=== PATIENT | female | born 1995 | race Two or more races ===

== ENCOUNTER 2023-03-22 17:04 | Emergency (ER) | payer BC, SELFPAY ==
[2023-03-22 17:13] VITALS: BP 134/91; PULSE 74; RESP 18; TEMP 36.8; O2SAT 100; BMI 36.1
--- NOTE | 2023-03-22 17:13 | ED_ITS ---
HPI - General Adult General Chief complaint: Abdominal Pain Stated complaint: Vomitting, abdominal pain Time Seen by Provider: 03/22/23 21:44 Source: patient, RN notes reviewed and old records reviewed Mode of arrival: ambulatory Limitations: no limitations History of Present Illness HPI narrative: 27-year-old female presents for evaluation of abdominal pain, nausea. she also reports that her menstrual is a few days late. She has a few episodes of nonbloody diarrhea over the last week she denies any history abdominal surgeries she denies any fevers, chills she has not left the country in the last 3 months denies any recent medication changes and she is not currently on any medications currently she does not have pain but her pain seems to be more upper abdominal and worse after eating she also describes a gagging sensation after eating Related Data Previous Rx's Medication Instructions Recorded calcium carbonate 1,000 1 tab PO QID PRN indigestion #30 03/22/23 mg-simethicone 60 mg chewable tabs tablet (Maalox Advanced) omeprazole 20 mg capsule,delayed 20 mg PO DAILY #30 caps 03/22/23 release ondansetron 4 mg disintegrating 4 mg PO Q8H PRN nausea and 03/22/23 tablet vomiting #20 tabs Allergies Allergy/AdvReac Type Severity Reaction Status Date / Time No Known Allergies Allergy Verified 03/22/23 17:16 Review of Systems 2 Constitutional: Constitutional: Denies chills, Denies fever(s) and Denies headache(s) Eyes: Eyes: Denies blurry vision ENT: Denies headache(s) Cardiovascular: Cardiovascular: Denies chest pain and Denies dyspnea Respiratory: Respiratory: Denies cough and Denies dyspnea Gastrointestinal: Gastrointestinal: Reports abdominal pain, Reports change in stool character, Reports diarrhea, Reports loose stools, Reports nausea and Denies vomiting Musculoskeletal: Musculoskeletal: Denies back pain Integumentary/Breasts: Skin/Breast: Denies rash Neurologic: Denies headache(s) PMF Social History Social History Smoked in Last 30 Days: No Advance Directives: No Advance Directives Information Provided: Yes Physical Exam ED Vital Signs: Vital Signs - 24 hr 03/22/23 17:13 03/22/23 20:58 Temperature 98.2 F 98.3 F Pulse Rate 74 66 Respiratory Rate 18 14 Blood Pressure 134/91 H 136/99 H Pulse Oximetry 100 100 Oxygen Delivery Method Room Air Room Air BMI result Body Mass Index 36.1 Const General: healthy appearing, comfortable, no acute distress, alert and awake Nutritional Appearance: well nourished Orientation/consciousness: patient oriented x3 HENMT Head: Yes normocephalic and Yes atraumatic Eyes Eyelids: Yes eyelids normal Conjunctivae: conjunctivae normal Sclerae: sclerae normal Corneas: corneas normal Pupils: Equal, round and reactive pupils present EOM: EOMs intact bilaterally Neck Neck: Yes full ROM Resp Effort & Inspection: normal respiratory effort, able to speak in complete sentences and not labored Cardio Rate: regular rate Rhythm: regular rhythm GI Inspection: No distended Palpation (GI): Soft to palpation, not firm, nontender, no guarding and not rigid Skin General skin exam: elasticity normal Neuro General: patient oriented x3 Cranial nerves: Yes Equal, round and reactive pupils present and Yes Bilaterally intact EOM present Cognition (Neuro): normal cognition Extrem Other: Moving all extremities well without any obvious deformities Course Course Course Narrative: This is a rapid medical exam: Additional HPI, ROS, PE not included below will be deferred to primary provider. Patient is a 27-year-old female presenting to the ED with complaint of abdominal pain, nausea which is worse after eating for the past 2 weeks. Reports menstrual period is late but took a test which was negative. Reports diarrhea about one week ago. Reports lower abdominal cramping, 02/09, states she has been expecting her period but it has not started yet. Denies fevers. Plan: UA, labs Medical Decision Making Medical Decision Making [facility] Narrative: 27 year female presents for evaluation of upper abdominal pain, nausea, worse after eating. She is nontender exam, there is no right upper quadrant tenderness, no right lower quadrant tenderness, this makes biliary disease and acute appendicitis less likely. History exam is most consistent with peptic ulcer disease / gastritis. Her labs and vitals are within normal limits. I discussed this with the patient will discharge the patient with Zofran, Maalox and omeprazole. She will also be given GI follow-up. I did discuss possible CT imaging with the patient, however I feel this is not likely to yield positive results. the patient is not Differential Diagnosis Differential Diagnoses: The differential diagnosis associated with the presentation includes abdominal pain Gastritis Peptic ulcer disease Biliary disease Pancreatitis Acute appendicitis Ectopic Lab Data [facility] Lab Attestation statement: I reviewed the patient's lab results. no leukocytosis or anemia, no electrolyte abnormalities. The patient is not 03/22/23 17:39 03/22/23 17:39 Labs: Lab Results 03/22/23 Range/Units 17:39 WBC 8.5 (4.8-10.8) X10*3/uL RBC 4.14 L (4.20-5.50) X10*6/uL Hgb 13.1 (12.0-16.0) g/dl Hct 38.1 (37.0-47.0) % MCV 92.0 (80.0-98.0) fL MCH 31.6 (27.0-33.0) pg MCHC 34.4 (31.0-35.0) g/dl RDW 11.7 (11.0-16.0) % Plt Count 186 (160-400) X10*3/uL MPV 11.0 (9.4-12.3) fL Immature Gran % (Auto) 0.4 (0.0-0.4) % Neut % (Auto) 62.6 (45-73) % Lymph % (Auto) 27.5 (20-40) % Riley % (Auto) 8.2 (2-11) % Eos % (Auto) 1.1 (0-4) % Baso % (Auto) 0.2 (0-2) % Lymph # (Auto) 2.4 (1.2-4.9) X10*3/uL Riley # (Auto) 0.7 (0.1-1.2) X10*3/uL Eos # (Auto) 0.1 (0.0-0.4) X10*3/uL Baso # (Auto) 0.0 (0.0-0.2) X10*3/uL Abs Immat Gran (auto) 0.03 (0.00-0.03) X10*3/uL Absolute Neuts (auto) 5.3 (2.0-8.3) x10*3/uL Absolute Nucleated RBC 0.000 (0.0-0.012) X10*3/uL Nucleated RBC % (auto) 0.0 (0.0-0.2) /100WBC Sodium 140 (135-145) mmol/L Potassium 3.8 (3.3-5.1) mmol/L Chloride 106 (96-108) mmol/L Carbon Dioxide 25 (22-29) mmol/L Anion Gap 13 (12-20) BUN 9 (9-16) mg/dL Creatinine 0.82 (0.5-1.4) mg/dL Estim Creat Clear Calc 100.7 Estimated GFR > 60 Random Glucose 102 (60-115) mg/dL Calcium 9.2 (8.4-10.2) mg/dL Total Bilirubin 0.2 (0.0-1.0) mg/dL AST 30 (5-31) U/L ALT 31 (0-31) U/L Alkaline Phosphatase 51 (39-117) U/L Total Protein 7.2 (6.5-8.0) g/dL Albumin 3.8 (3.5-5.0) g/dL Beta HCG, Quant < 2 mIU/mL Urine Color Yellow Urine Appearance Clear Urine pH 6.5 (5.0-9.0) Ur Specific [place] 1.015 (1.005-1.025) Urine Protein Negative (Neg-Trace) mg/dL Urine Glucose (UA) Negative (Negative) mg/dL Urine Ketones Negative (Negative) mg/dL Urine Blood Moderate (2+) H (Negative) Urine Nitrite Negative (Negative) Ur Leukocyte Esterase Trace H (Negative) Urine RBC 3-5 H (0-2) /HPF Urine WBC 0-5 (0-5) /HPF Ur Squamous Epith Cells 3-5 (0-2) /HPF Urine Bacteria None Seen (None Seen) Hyaline Casts 0-2 (0-2) /LPF COVID-19 (VLADIMIR) Negative (Negative) COVID-19 Clin Com See Note Influenza Type A (LEIGH) Negative (Negative) Influenza Type B (LEIGH) Negative (Negative) Influenza A & B Note See Note Tests considered The following testing was considered but not selected: consider CT scan of the abdomen pelvis but ultimately deferred Discharge Plan Discharge Clinical Impression: Abdominal pain Patient Disposition: Home, Self-Care Instructions: Gastroesophageal Reflux Disease (ED) Additional Instructions: Your workup in the emergency department today was reassuring. Your symptoms are most likely related to gastritis or peptic ulcer disease. Use Zofran as needed for nausea or vomiting. Use omeprazole daily for the next 2 weeks. Take Maalox as needed for breakthrough abdominal pain Follow-up with GI at the number provided Prescriptions: New ondansetron 4 mg tablet,disintegrating 4 mg PO Q8H PRN (Reason: nausea and vomiting) Qty: 20 0RF omeprazole 20 mg capsule,delayed release(DR/EC) 20 mg PO DAILY Qty: 30 0RF Maalox Advanced 1,000-60 mg tablet,chewable 1 tab PO QID PRN (Reason: indigestion) Qty: 30 0RF
[2023-03-22 17:44] LABS: MANUAL DIFF FLAG NO
[2023-03-22 17:49] LABS: Appearance Urine Clear; Basophils Percent Auto 0.2 % (0-2); Color Urine Yellow; Eosinophils Absolute Auto 0.1 X10*3/uL (0.0-0.4); Eosinophils Percent Auto 1.1 % (0-4); Glucose Urine UA Negative (Negative); Hematocrit 38.1 % (37.0-47.0); Hemoglobin 13.1 g/dl (12.0-16.0); Imm Gran Abs Auto 0.03 X10*3/uL (0.00-0.03); Imm Gran Pct Auto 0.4 % (0.0-0.4); Leukocyte Esterase Urine Trace (Negative); Lymphocytes Absolute Auto 2.4 X10*3/uL (1.2-4.9); Lymphocytes Percent Auto 27.5 % (20-40); Mean Corpuscular HGB Conc 34.4 g/dl (31.0-35.0); Mean Corpuscular Hemoglobin 31.6 pg (27.0-33.0); Monocytes Absolute Auto 0.7 X10*3/uL (0.1-1.2); Monocytes Percent Auto 8.2 % (2-11); Neutrophils Absolute Auto 5.3 x10*3/uL (2.0-8.3); Neutrophils Percent Auto 62.6 % (45-73); Nitrite Urine Negative (Negative); PH 6.5 (5.0-9.0); Platelet Count 186 X10*3/uL (160-400); Red Blood Count 4.14 X10*6/uL (4.20-5.50); Red Cell Distribution Width 11.7 % (11.0-16.0); Specific Gravity - Urine 1.015 (1.005-1.025); UMIC TRIGGER UACC YES; Urine Blood Moderate (2+) (Negative); Urine Ketones Negative (Negative); Urine Protein Negative (Neg-Trace); White Blood Count 8.5 X10*3/uL (4.8-10.8)
[2023-03-22 17:59] LABS: COVID-19 Test Negative (Negative); IDNOW Serial# 08D9AD1C
[2023-03-22 18:00] LABS: IDNOW Serial# BCCEAD1C; Influenza A Negative (Negative); Influenza B2 Negative (Negative)
[2023-03-22 18:02] LABS: Bacteria Urine None Seen (None Seen); Hyaline Casts Urine 0-2 /LPF (0-2); WBC Urine 0-5 /HPF (0-5)
[2023-03-22 18:09] LABS: Alanine Aminotransferase 31 U/L (0-31); Albumin Level 3.8 g/dL (3.5-5.0); Alkaline Phosphatase 51 U/L (39-117); Anion Gap 13 (12-20); Aspartate Amino Transferase 30 U/L (5-31); Bilirubin Total 0.2 mg/dL (0.0-1.0); Blood Urea Nitrogen 9 mg/dL (9-16); Calcium 9.2 mg/dL (8.4-10.2); Carbon Dioxide 25 mmol/L (22-29); Chloride 106 mmol/L (96-108); Creatinine Clr Calc Pharmacy 100.7; Estimated Glomerular Filt Rate > 60; Glucose Random 102 mg/dL (60-115); Potassium 3.8 mmol/L (3.3-5.1); Sodium 140 mmol/L (135-145); Total Protein 7.2 g/dL (6.5-8.0)
[2023-03-22 18:10] LABS: HCG Quantitative < 2 mIU/mL
[2023-03-22 20:58] VITALS: BP 136/99; PULSE 66; RESP 14; TEMP 36.8; O2SAT 100
[2023-03-22 22:17] VITALS: BP 104/69; PULSE 65; RESP 12; TEMP 36.6; O2SAT 98
== END 2023-03-22 22:23 | disposition home or self-care (01) ==
PROVIDERS: Registered Nurse Emergency; Emergency Provider Emergency Medicine Emergency Medical Services
DX: R10.11 Right upper quadrant pain (principal); R11.0 Nausea; Z11.52 Encounter for screening for COVID-19
CPT/HCPCS: 80053; 81001; 84702; 85025; 87502; 87635; 99283; 99284